=== PATIENT | female | born 1975 | race Two or more races ===

== ENCOUNTER 2017-08-09 16:19 | Emergency (ER) | payer OTHER ==
[~2017-08-09] VITALS: Ht 157.5 cm; Wt 64.4 kg
[2017-08-09] MEDS ORDERED: BISOPROLOL-HCT1 EACH (17:21)
[2017-08-09] MEDS ORDERED: TESSALON PERLE100 M1 PO (17:51)
[2017-08-09] MEDS ORDERED: ALBUTEROL2.5 MG/3 M IH (17:51)
== END 2017-08-09 18:31 | disposition home or self-care (01) ==
LOC: ER 16:19
DX: J11.1 Influenza due to unidentified influenza virus with other respiratory manifestations (principal)